=== PATIENT | female | born 1970 | race Caucasian/White ===

== ENCOUNTER 2017-11-16 20:02 | Inpatient (IN) | payer OTHER ==
[~2017-11-16] VITALS: Ht 149.9 cm; Wt 50.4 kg
[~2017-11-16 20:02] MED LIST: BUPR1FIL5; CITA40TA12; GABA-585 PO; HYDR-971 PO; IBUP200T44 PO; LAMO150T3; MORP80CA; OMEP20CA5 PO; TRAM-48
--- NOTE | 2017-11-16 20:10 | ED.ADGEN ---
Past History Past Medical History: Depression, Other Additional Past Medical Histor: chronic pain Past Surgical History: , Hysterectomy Additional Past Surgical Histo: disectomy Smoking: Greater than 1 pack/day Alcohol Use: Occasionally Drug Use: None Adult General Chief Complaint Chief Complaint ".. I guess .. I OD... on the Heroin...".. " I only shot ...up $20 worth... I am .. going .. into rehab. next ... couple weeks.."... " I ... have... not .. over dosed... for ..a long .............time. ... I ... almost.... fuck... up.... big... time..." (Pt. then falls asleep) [facility] HPI Patient is a 47 year old female who presents with hx of OD on Heroin. Pt. was found near apneic and hypoxic by paramedics. The patient received bag mask valve ventilation . Patient received IV Narcan with return to somewhat elevated level of consciousness and increased respiratory effort. Patient admitted to IV injection of heroin. Patient advised she has been addicted to heroin daily use. Patient has plans to go into rehabilitation this coming week. 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 Pt. continue to fall asleep during her evaluation and observation. Pt. Hx. of other drug use. Pt. has followed at [facility] in past. Pt. somewhat poor historian because of her depressed mental state. Review of Systems Review of Systems Patient has no complaints Constitutional: Denies fever or chills [] Eyes: Denies change in visual acuity, redness, or eye pain [] HENT: Denies nasal congestion or sore throat [] Respiratory: Denies cough or shortness of breath [] Cardiovascular: No additional information not addressed in HPI [] GI: Denies abdominal pain, nausea, vomiting, bloody stools or diarrhea [] : Denies dysuria or hematuria [] Musculoskeletal: Denies back pain or joint pain [] Integument: Denies rash or skin lesions [] Neurologic: Denies headache, focal weakness or sensory changes [] Endocrine: Denies polyuria or polydipsia [] All other systems were reviewed and found to be within normal limits, except as documented in this note. Family History Family History Not currently available Current Medications Current Medications Current Medications Medications (Trade) Dose Ordered Sig/Britt Start Time Stop Time Status Last Admin Dose Admin Folic Acid (FOLIC ACID SYRINGE for ER) 5 mg STK-MED ONCE 11/16/17 21:17 11/16/17 21:18 DC Multivitamins/ Minerals (Infuvite Adult) 10 ml STK-MED ONCE 11/16/17 21:16 11/16/17 21:17 DC Multivitamins/ Minerals 10 ml/ Folic Acid 1 mg/ Thiamine HCl 100 mg/Dextrose/ Lactated Ringer's 1,011.2 ml @ 0 mls/hr 1X ONCE 11/16/17 20:15 11/16/17 20:16 DC 11/16/17 20:15 1,000 MLS/HR Thiamine HCl 200 mg STK-MED ONCE 11/16/17 21:15 11/16/17 21:16 DC Allergies Allergies Allergies Coded Allergies Type Severity Reaction Last Updated Verified Cephalexin Monohydrate Allergy Intermediate 07/04/15 Yes Sulfa (Sulfonamide Antibiotics) Allergy Intermediate 07/04/15 Yes sulfamethoxazole Allergy Intermediate 07/04/15 Yes trimethoprim Allergy Intermediate 07/04/15 Yes Physical Exam Physical Exam Constitutional: Intoxicated appearance. Very sedated... Requires constant stimulation to get report. ] HENT: Normocephalic, atraumatic, bilateral external ears normal, oropharynx moist, no oral exudates, nose normal. Poor dentition Eyes: PERRLA, EOMI, conjunctiva normal, no discharge. [] Neck: Normal range of motion, no tenderness, supple, no stridor. [] Cardiovascular: Bradycardia Heart rate regular rhythm, no murmur [] Lungs & Thorax: Bilateral breath sounds equal at apexes with scattered wheezes and basilar crackles on auscultation []poor respiratory effort. Abdomen: Bowel sounds decreased, soft, no tenderness, no masses, no pulsatile masses. [] Old surgery scars. Skin: Warm, dry, no erythema, no rash. []Injection chase on her arms Back: No tenderness, no CVA tenderness. [] Extremities: No tenderness, no cyanosis, no clubbing, ROM intact, no edema. [] Neurologic: Alert and oriented X 2, moves all limbs on request. Reports sensation in all limbs . Psychologic: Affect flat, judgement poor insight to her medical condition, mood depressed. Current Patient Data Vital Signs Vital Signs Date Time Temp Pulse Resp B/P (MAP) Pulse Ox O2 Delivery O2 Flow Rate FiO2 11/17/17 01:00 66 18 95 11/16/17 20:08 98.1 Room Air Lab Results Laboratory Tests Test 11/16/17 21:30 11/16/17 21:52 White Blood Count 14.2 x10^3/uL (4.0-11.0) H Red Blood Count 4.60 x10^6/uL (3.50-5.40) Hemoglobin 13.5 g/dL (12.0-15.5) Hematocrit 40.7 % (36.0-47.0) Mean Corpuscular Volume 89 fL (79-100) Mean Corpuscular Hemoglobin 29 pg (25-35) Mean Corpuscular Hemoglobin Concent 33 g/dL (31-37) Red Cell Distribution Width 13.7 % (11.5-14.5) Platelet Count 425 x10^3/uL (140-400) H Neutrophils (%) (Auto) 85 % (31-73) H Lymphocytes (%) (Auto) 9 % (24-48) L Monocytes (%) (Auto) 5 % (0-9) Eosinophils (%) (Auto) 1 % (0-3) Basophils (%) (Auto) 0 % (0-3) Neutrophils # (Auto) 12.0 x10^3uL (1.8-7.7) H Lymphocytes # (Auto) 1.3 x10^3/uL (1.0-4.8) Monocytes # (Auto) 0.7 x10^3/uL (0.0-1.1) Eosinophils # (Auto) 0.1 x10^3/uL (0.0-0.7) Basophils # (Auto) 0.1 x10^3/uL (0.0-0.2) Sodium Level 144 mmol/L (136-145) Potassium Level 3.4 mmol/L (3.5-5.1) L Chloride Level 106 mmol/L (98-107) Carbon Dioxide Level 27 mmol/L (21-32) Anion Gap 11 (6-14) Blood Urea Nitrogen 7 mg/dL (7-20) Creatinine 0.7 mg/dL (0.6-1.0) Estimated GFR (Cockcroft-Gault) 90.1 Glucose Level 106 mg/dL (70-99) H Calcium Level 8.8 mg/dL (8.5-10.1) Magnesium Level 2.1 mg/dL (1.8-2.4) Total Bilirubin 0.4 mg/dL (0.2-1.0) Direct Bilirubin 0.1 mg/dL (0.0-0.2) Aspartate Amino Transferase (AST) 20 U/L (15-37) Alanine Aminotransferase (ALT) 24 U/L (14-59) Alkaline Phosphatase 101 U/L (46-116) Total Protein 7.5 g/dL (6.4-8.2) Albumin 3.3 g/dL (3.4-5.0) L Ethyl Alcohol Level < 10 mg/dL (0-10) Blood pH 7.25 (7.35-7.45) L Blood Gas PCO2 59 mmHg (35-45) H Blood Gas PO2 82 mmHg (80-100) Blood Gas HCO3 26 mmol/L (22-26) Arterial Bld O2 Saturation (Calc) 94 % (92-99) FiO2 30 % EKG EKG My interpretation of EKG sinus rhythm of 73 bpm. There is nonspecific contour abnormalities anterior lateral leads. No findings acute STEMI of contralateral changes.[] Radiology/Procedures Radiology/Procedures My interpretation of chest x-ray shows no significant acute cardiopulmonary findings.[] Course & Med Decision Making Course & Med Decision Making Pertinent Labs and Imaging studies reviewed. (See chart for details). Discussed presentation, testing and treatment plan with Dr. Gautam. Will admit for evaluation and tx. . [] Final Impression Final Impression 1. Heroin overdose 2. Leukocytosis 3. Respiratory acidosis 4. Respiratory failure- Hypercarbia 5. Hypokalemia 6. Hx. Polysubstance Abuse[] 7. Tobacco Use Dragon Disclaimer Dragon Disclaimer This electronic medical record was generated, in whole or in part, using a voice recognition dictation system. NICKOLAS PACHECO MD November 16, 2017 20:10
[2017-11-16] MEDS ORDERED: MVI, ADULT NO.4 WITH VIT K 10 ML, FOLIC ACID 1 MG, THIAMINE 100 MG in IV DEXTROSE 5%-LA... IV ONE ×4 (20:15)
[2017-11-16] MEDS ORDERED: THIAMINE 200 MG/2 ML VIAL. IV ONE (21:15)
[2017-11-16] MEDS ORDERED: MVI, ADULT NO.4 WITH VIT K 10 ML VIAL IV ONE (21:16)
[2017-11-16] MEDS ORDERED: FOLIC ACID 5 MG/ML SYRINGE for ER IV ONE (21:17)
--- NOTE | 2017-11-16 21:21 | EKG ---
[address] [address] Test Date: 2017-11-16 Test Time: 21:14:11 Pat Name: MAXIM ROLON Department: Room: Gender: F Meat Dresser: YRIS : 1970 Requested By: NICKOLAS PACHECO Order Number: [id number] Reading MD: Measurements Intervals [place] Rate: 73 P: 42 ND: 120 QRS: 46 QRSD: 84 T: 67 QT: 360 QTc: 400 Interpretive Statements SINUS RHYTHM QRS(T) CONTOUR ABNORMALITY CONSIDER ANTEROLATERAL MYOCARDIAL DAMAGE POSSIBLY ABNORMAL ECG RI6.01 No previous ECG available for comparison
[2017-11-16 21:56] LABS: BASO # 0.1 x10^3/uL (0.0-0.2); BASO % 0 % (0-3); EOS # 0.1 x10^3/uL (0.0-0.7); EOS % 1 % (0-3); HEMATOCRIT 40.7 % (36.0-47.0); HEMOGLOBIN 13.5 g/dL (12.0-15.5); LYMPH # 1.3 x10^3/uL (1.0-4.8); LYMPH % 9 % (24-48); MEAN CORPUSCULAR HEMOGLOBIN 29 pg (25-35); MEAN CORPUSCULAR HGB CONC 33 g/dL (31-37); MEAN CORPUSCULAR VOLUME 89 fL (79-100); MONO # 0.7 x10^3/uL (0.0-1.1); MONO % 5 % (0-9); NEUT % 85 % (31-73); PLATELET COUNT 425 x10^3/uL (140-400); RED CELL DISTRIBUTION WIDTH 13.7 % (11.5-14.5); WHITE BLOOD COUNT 14.2 x10^3/uL (4.0-11.0)
[2017-11-16 22:01] LABS: BGAS PH 7.25 (7.35-7.45)
[2017-11-16 22:06] LABS: ALBUMIN 3.3 g/dL (3.4-5.0); CALCIUM 8.8 mg/dL (8.5-10.1); CREATININE 0.7 mg/dL (0.6-1.0); TOTAL PROTEIN 7.5 g/dL (6.4-8.2)
[2017-11-16 22:07] LABS: DIRECT BILIRUBIN 0.1 mg/dL (0.0-0.2); GFR 90.1; MAGNESIUM 2.1 mg/dL (1.8-2.4); POTASSIUM 3.4 mmol/L (3.5-5.1); TOTAL BILIRUBIN 0.4 mg/dL (0.2-1.0)
[2017-11-17 04:25] VITALS: BP 111/76
[2017-11-17 06:37] VITALS: BP 98/66
[2017-11-17 06:41] LABS: BASO # 0.1 x10^3/uL (0.0-0.2); BASO % 1 % (0-3); EOS # 0.1 x10^3/uL (0.0-0.7); EOS % 1 % (0-3); HEMATOCRIT 38.6 % (36.0-47.0); HEMOGLOBIN 12.6 g/dL (12.0-15.5); LYMPH # 2.4 x10^3/uL (1.0-4.8); LYMPH % 20 % (24-48); MEAN CORPUSCULAR HEMOGLOBIN 29 pg (25-35); MEAN CORPUSCULAR HGB CONC 33 g/dL (31-37); MEAN CORPUSCULAR VOLUME 89 fL (79-100); MONO # 0.7 x10^3/uL (0.0-1.1); MONO % 6 % (0-9); NEUT % 73 % (31-73); PLATELET COUNT 386 x10^3/uL (140-400); RED BLOOD COUNT 4.36 x10^6/uL (3.50-5.40); RED CELL DISTRIBUTION WIDTH 13.6 % (11.5-14.5); WHITE BLOOD COUNT 12.4 x10^3/uL (4.0-11.0)
[2017-11-17] MEDS ORDERED: RANI150T21 PO (06:41)
[2017-11-17 08:39] VITALS: BP 105/68
--- NOTE | 2017-11-17 08:45 | RAD ---
Portable chest, 11/16/2017: HISTORY: Overdose, chest pain The heart size and pulmonary vascularity are normal. No pulmonary infiltrate is seen. There is no evidence of pleural fluid. Surgical plates and screws are present in the lower cervical spine. IMPRESSION: No acute cardiopulmonary abnormality is detected. Electronically signed by: Roe Skaggs MD (11/17/2017 8:42 AM) [facility]
[2017-11-17] MEDS ORDERED: levoFLOXacin 500 MG TABLET PO SCH (09:00)
[2017-11-17] MEDS ORDERED: POTASSIUM CHLORIDE 20 MEQ TABLET.ER. PO ONE (09:00)
[2017-11-17] MEDS ORDERED: IV RINGERS SOLUTION,LACTATED 1,000 ML IV SCH (09:00)
[2017-11-17 11:56] VITALS: BP 93/63
--- NOTE | 2017-11-17 18:37 | SSS ---
ADMIT DATE: 11/17/2017 HISTORY OF PRESENT ILLNESS: The patient is a 47-year-old female patient who came to the Emergency Room complaining that she has overdosed on heroin. After she woke up, she apparently was found, he had apneic and hypoxic paramedics. The patient received bag mask valve ventilation. She received IV Narcan ____ somewhat elevated level of consciousness and increased respiratory effort. She admitted to injecting heroin. The patient advised that she has been addicted to heroin daily use. She has plans to go into rehabilitation center this coming week. The patient advised she has been heavily addicted to narcotics since an injury in the service. She apparently was in the [employer]. She is followed [facility]. She was basically extensively investigated and was found to be hypoxic, hypercapnic, acidotic, had leukocytosis and also hypokalemia and was admitted for observation. By the time I saw her, she was awake, alert, up and about. Denied any complaint. PAST MEDICAL HISTORY: Unremarkable except for heroin addiction and also a cigarette or nicotine abuse disorder. PAST SURGICAL HISTORY: Significant for 3 C-sections, one unilateral oophorectomy and also skin grafting as well as spine surgery of her neck. ALLERGIES: SHE IS ALLERGIC TO SULFA DRUGS WELL CEPHALEXIN. MEDICATIONS: She is currently on ibuprofen 400 mg q.6 hourly, gabapentin 100 mg 3 times a day, lamotrigine 150 mg once a day, citalopram hydrobromide 40 mg once a day, ranitidine 150 mg twice a day. FAMILY HISTORY: She has 2 sisters younger, both healthy. Her father at 64 because of myocardial infarction. Her mother is still alive at the age of 64 and healthy. SOCIAL HISTORY: She is , has 3 daughters. Smokes 1 pack per day, drinks alcohol occasionally; however, she has been heavily abusing heroin for the last year, also few Xanax. She is currently retired, on disability. She used to be in the [employer]. REVIEW OF SYSTEMS: The patient denied any blurring of vision, cataract, glaucoma or macular degeneration. Denied any earache, tinnitus or sensorineural deafness. Denied any nosebleeds, stuffy nose or postnasal drip. Denied any sore throat, sore tongue, toothache, hoarseness of voice or difficulty swallowing. Denied any nausea, vomiting, diarrhea or constipation. Denied any hematemesis, melena or hematochezia. Denied any dysuria, frequency or hematuria. Denied any chest pain, shortness of breath, orthopnea, or paroxysmal nocturnal dyspnea. Did complain of cough, mostly productive of white sputum. Denied any chills, rigors or fever. PHYSICAL EXAMINATION: GENERAL: On arrival to the Emergency Room, she was lethargic but arousable. VITAL SIGNS: Her heart rate was 66, blood pressure 111/76, temperature was 98.8, respiratory rate was 16 and oxygen saturation was 99%. HEENT: Showed normocephalic, atraumatic. NECK: Supple. HEART: Showed normal first and second sounds. No gallop, rub or murmur. CHEST: Clear to auscultation. No crepitation or rhonchi. ABDOMEN: Distended, soft, nontender. NEUROLOGIC: She was initially lethargic, was given Narcan, actually was bagged, however, after she received Narcan, she regained consciousness. By the time I saw her, she was completely awake, alert, oriented to time, place and person. LABORATORY DATA: On admission showed arterial blood gas with a pH of 7.25, pCO2 of 59, pO2 of 82, bicarbonate 26, oxygen saturation was 94% on FiO2 of 30%. White cell count was 14,200, hemoglobin 13.5, hematocrit 40, MCV 89 and platelet count of 425,000. Her chemistry showed a serum sodium 144, potassium 3.4, chloride 106, bicarbonate 27, anion gap of 11, BUN 7, creatinine 0.7, estimated GFR was 90 mL per minute. Her glucose was 106, calcium was 8.8, magnesium was 2.1. Total bilirubin, AST, ALT, alkaline phosphatase were normal. Total protein was 7.5, albumin 3.3. Her blood alcohol level was less than 10. Her chest x-ray showed the heart size and pulmonary vascularity are normal. No pulmonary infiltrates are seen. There is no evidence of pleural fluid. Surgical plate, screws are present in her lower cervical spine. As the patient was fully awake, hemodynamically stable, afebrile, the patient was discharged with the instruction to follow at the [facility] and to keep the appointment for rehabilitation next week. JOY ACEVEDO MD DR: FRANCY/allison JOB#: [id number] / [id number]
== END 2017-11-17 12:30 | disposition home or self-care (01) | DRG 917 ==
LOC: ER 20:02 → ICU 11-17 01:30
PROVIDERS: ADMIT Internal Medicine; ATTEND Internal Medicine
DX: T40.1X1A Poisoning by heroin, accidental (unintentional), initial encounter (principal); J96.92 Respiratory failure, unspecified with hypercapnia; E87.2 Acidosis; F11.20 Opioid dependence, uncomplicated; D72.829 Elevated white blood cell count, unspecified; E87.6 Hypokalemia; F17.210 Nicotine dependence, cigarettes, uncomplicated; F32.9 Major depressive disorder, single episode, unspecified; G89.29 Other chronic pain; Z82.49 Family history of ischemic heart disease and other diseases of the circulatory system; Z90.710 Acquired absence of both cervix and uterus; Z90.721 Acquired absence of ovaries, unilateral; Z88.6 Allergy status to analgesic agent; Z88.2 Allergy status to sulfonamides; Z88.8 Allergy status to other drugs, medicaments and biological substances
CPT/HCPCS: 36415; 71045; 80048; 80076; 82803; 83735; 85025; 87641; 93005; G0480; J7120; 99285-25